=== PATIENT | female | born 1980 | race Caucasian/White ===

== ENCOUNTER 2018-11-24 07:57 | Day surgery (SDC) | payer OTHER ==
[2018-11-24 08:27] VITALS: BMI 26.2
[2018-11-24 08:39] VITALS: PULSE 72; RESP 18; TEMP 97.8; O2SAT 97
--- NOTE | 2018-11-24 09:40 | CP.SDSHP ---
Same Day Surgery H & P - History Proposed Procedure: EGD Pre-Op Diagnosis: SEE NOTES - Previous Medical/Surgical History Misc: Other Pain: 4.Moderate Pain - Allergies Allergies: Allergies No Known Allergies Allergy (Verified 11/24/18 08:27) - Physical Exam General Appearance: N Vital Signs: Vital Signs 11/24/18 08:33 Temperature 97.8 F Pulse Rate 72 Respiratory 18 Rate Blood Pressure 117/65 O2 Sat by Pulse 97 Oximetry Mental Status: Alert & Oriented x3 Neuro: WNL Heart: WNL Lungs: WNL GI: Other - {Optional Preform as Required} Breast: WNL Abdomen: Other Rectal: Other Integument: WNL : WNL Ortho: WNL ENT: WNL - Impression Pt. Evaluated Today:Candidate for Anesthesia & Procedure: Yes - Date & Time Time: 09:40 Short Stay Discharge - Short Stay Discharge Admitting Diagnosis/Reason for Visit: DYSPEPSIA Disposition: HOME/ ROUTINE
[2018-11-24] MEDS ORDERED: Lidocaine Hydrochloride 5 ML INJ ONE (09:42)
[2018-11-24] MEDS ORDERED: Propofol 10 mg/ml Inj (20 ML) ONE (09:42)
[2018-11-24] MEDS ORDERED: Midazolam 2 MG/2 ML VIAL ONE (09:42)
[2018-11-24] MEDS ORDERED: Lactated Ringer's 500 ML IV SCH (09:45)
[2018-11-24] MEDS ORDERED: Belladonna-Phenobarbital PO ONE (09:45)
[2018-11-24] MEDS ORDERED: Pantoprazole 40 mg EC Tab PO ONE (09:45)
[2018-11-24 10:43] VITALS: BP 126/79
== END 2018-11-24 10:45 | disposition home or self-care (01) ==
LOC: C.ENDO 07:57
PROVIDERS: ATTEND Specialist
DX: K29.00 Acute gastritis without bleeding (principal); K29.50 Unspecified chronic gastritis without bleeding; K29.80 Duodenitis without bleeding; B96.81 Helicobacter pylori [H. pylori] as the cause of diseases classified elsewhere; K30 Functional dyspepsia; F17.200 Nicotine dependence, unspecified, uncomplicated; Z98.890 Other specified postprocedural states
CPT/HCPCS: 43239; 88305; 88313; 88342; J2250; J2704; J2765; J7120